=== PATIENT | male | born 1980 | race Caucasian/White ===

== ENCOUNTER 2019-05-02 03:17 | Emergency (ER) | payer MEDICAID, MEDICARE ==
[2019-05-02 04:05] LABS: ABSOLUTE BASOPHILS # (AUTO) 0.1 10^3/uL (0.0-0.2); ABSOLUTE EOSINOPHILS # (AUTO) 0.1 10^3/uL (0.0-0.6); ABSOLUTE LYMPHOCYTES (AUTO) 1.7 10^3/uL (0.5-4.7); ABSOLUTE MONOCYTES (AUTO) 0.6 10^3/uL (0.1-1.4); ABSOLUTE NEUT (AUTO) 5.6 10^3/uL (1.7-8.2); BASOPHILS % (AUTO) 0.8 % (0-2); EOSINOPHILS % (AUTO) 1.6 % (0-6); HEMATOCRIT 43.3 % (37.9-51.0); HEMOGLOBIN 14.9 g/dL (13.5-17.0); LYMPHOCYTES % (AUTO) 21.3 % (13-45); MEAN CORPUSCULAR HEMOGLOBIN 32.6 pg (27.0-33.4); MEAN CORPUSCULAR HGB CONC 34.5 g/dL (32.0-36.0); MEAN CORPUSCULAR VOLUME 94 fl (80-97); MONOCYTES % (AUTO) 7.9 % (3-13); PLATELET COUNT 295 10^3/uL (150-450); RED BLOOD COUNT 4.58 10^6/uL (4.35-5.55); RED CELL DISTRIBUTION WIDTH 13.8 % (11.5-14.0); SEGMENTED NEUTROPHILS % (AUTO) 68.4 % (42-78); TOTAL CELLS COUNTED % (AUTO) 100 %; WHITE BLOOD COUNT 8.2 10^3/uL (4.0-10.5)
[2019-05-02 04:38] LABS: ALBUMIN 4.4 g/dL (3.5-5.0); ALKALINE PHOSPHATASE 57 U/L (38-126); ANION GAP 8 (5-19); ASPARTATE AMINO TRANSFERASE 19 U/L (17-59); BILIRUBIN,DIRECT 0.1 mg/dL (0.0-0.4); BILIRUBIN,TOTAL 0.7 mg/dL (0.2-1.3); BLOOD UREA NITROGEN 12 mg/dL (7-20); CALCIUM 9.9 mg/dL (8.4-10.2); CARBON DIOXIDE 32 mmol/L (22-30); CHLORIDE 100 mmol/L (98-107); GLUCOSE 94 mg/dL (75-110); TOTAL PROTEIN 7.2 g/dL (6.3-8.2)
[2019-05-02 04:41] LABS: ACETAMINOPHEN < 10 ug/mL (10-30); ALCOHOL < 10 mg/dL (NONE DETECTED); SALICYLATE < 1.0 mg/dL (2.0-20.0)
[2019-05-02 04:59] LABS: APPEARANCE,URINE SLIGHTLY-CLOUDY; BILIRUBIN,URINE NEGATIVE (NEGATIVE); COLOR,URINE YELLOW; GLUCOSE, URINE NEGATIVE (NEGATIVE); KETONES,URINE TRACE mg/dL (NEGATIVE); LEUKOCYTE ESTERASE,URINE NEGATIVE (NEGATIVE); NITRITE,URINE NEGATIVE (NEGATIVE); PROTEIN,URINE 30 mg/dL (NEGATIVE); URINE SPECIFIC GRAVITY 1.019; UROBILINOGEN,URINE NEGATIVE mg/dL (<2.0)
[2019-05-02 05:07] LABS: URINE BARBITURATES SCREEN NEGATIVE; URINE BENZODIAZEPINES SCREEN NEGATIVE; URINE COCAINE SCREEN NEGATIVE; URINE METHADONE SCREEN NEGATIVE; URINE PHENCYCLIDINE SCREEN NEGATIVE
[2019-05-02 05:08] LABS: URINE AMPHETAMINES SCREEN UNCONFIRMED POSITIVE; URINE MARIJUANA (THC) SCREEN UNCONFIRMED POSITIVE
--- NOTE | 2019-05-02 06:44 | ER Document Report ---
ED General <OLIVER OVERTON - Last Filed: 05/02/19 09:19> - Related Data Home Medications: Depakote, cogentin, prolixin <LANE NAVA - Last Filed: 05/02/19 09:26> - General Chief Complaint: Psych Problem Stated Complaint: PSYCH Time Seen by Provider: 05/02/19 05:58 Primary Care Provider: [facility] [Outside] - Follow up as needed - HPI Notes: Patient is a 38-year-old male with a known history of schizophrenia who presents to the emergency department for evaluation. Evidently the patient presented to [place], as he wanted help with drug addiction. The patient admits to using crack cocaine, methamphetamines, pills, and "what ever else I can get." He states that he has been using excessively for the last month, since being discharged from [facility]. He had been arrested based on a drug violation. He states he had be en having suicidal and homicidal thoughts earlier, but states that right now he is not having any. His homicidal thoughts were not directed at anyone in particular, he states he was just angry. He states to me that he has been taking his medications, believes that they are helpful. He also states to me that he is having visual and auditory hallucinations. I asked him if he could not elaborate, and he states "they are too hard to explain." The patient has had multiple psychiatric hospitalizations in the past. He states that this point he just wants help with his substance abuse issues. (LANE NAVA) - Related Data Allergies/Adverse Reactions: No Known Allergies Allergy (Unverified 05/02/19 03:30) Past Medical History - General Information source: Patient - Social History Smoking Status: Current Every Day Smoker Family History: Reviewed & Not Pertinent Patient has suicidal ideation: Yes Patient has homicidal ideation: Yes Psychiatric Medical History: Reports: Hx Schizophrenia <LANE NAVA - Last Filed: 05/02/19 09:26> Review of Systems - Review of Systems Constitutional: No symptoms reported EENT: No symptoms reported Cardiovascular: No symptoms reported Respiratory: No symptoms reported Gastrointestinal: No symptoms reported Genitourinary: No symptoms reported Musculoskeletal: No symptoms reported Skin: No symptoms reported Neurological/Psychological: No symptoms reported <LANE NAVA - Last Filed: 05/02/19 09:26> Physical Exam <LANE NAVA - Last Filed: 05/02/19 09:26> - Vital signs Vitals: Temp Pulse Resp BP Pulse Ox 97.4 F 81 20 145/66 H 100 05/02/19 03:25 05/02/19 03:25 05/02/19 03:25 05/02/19 03:25 05/02/19 03:25 - Notes Notes: This is a pleasant 38-year-old male who appears his stated age in no acute distr ess. He is lying comfortably in the bed, interacts appropriately with examiner. He is calm and cooperative. Vital signs reviewed, please refer to chart. Head is normocephalic, atraumatic. Pupils equal round, reactive to light. Neck is supple without meningismus. Heart is regular rate and rhythm. Lungs are clear to auscultation bilaterally. Abdomen is soft, nontender, normoactive bowel soun ds throughout. Extremities without cyanosis, clubbing. Posterior calves are nontender. Peripheral pulses are equal. Skin is warm and dry. Patient is awake, alert, neurological exam is nonfocal. (LANE NAVA) Course - Laboratory Result Diagrams: 05/02/19 03:40 05/02/19 03:40 <OLIVER OVERTON - Last Filed: 05/02/19 09:19> - Laboratory Result Diagrams: 05/02/19 03:40 05/02/19 03:40 <L[address] NAVA - Last Filed: 05/02/19 09:26> - Re-evaluation Re-evalutation: 05/02/19 06:44 Patient presents to the emergency department for evaluation. He denies any current suicidal or homicidal ideations. He does admit to some visual and auditory hallucinations. He certainly has some substance abuse issues that will need to be addressed as well. Otherwise, he has no somatic complaints at this time. He is calm and cooperative. He is medically cleared, awaiting psychosoci al evaluation. (LANE NAVA) - Vital Signs Vital signs: Temp Pulse Resp BP Pulse Ox 97.4 F 81 20 145/66 H 100 05/02/19 03:25 05/02/19 03:25 05/02/19 03:25 05/02/19 03:25 05/02/19 03:25 - Laboratory Laboratory results interpreted by me: 05/02/19 05/02/19 03:40 04:00 Carbon Dioxide 32 H Urine Protein 30 H Urine Ketones TRACE H Salicylates < 1.0 L Acetaminophen < 10 L - EKG Interpretation by Me Additional EKG results interpreted by me: 05/02/19 06:43 Sinus mechanism with rate of 69 bpm. Normal axis and intervals, no acute ST changes concerning for ischemia or infarction. (LANE NAVA) Discharge <OLIVER OVERTON - Last Filed: 05/02/19 09:19> <LANE NAVA - Last Filed: 05/02/19 09:26> - Discharge Clinical Impression: Polysubstance abuse, Schizophrenia Condition: Stable Disposition: HOME, SELF-CARE Additional Instructions: You have been evaluated both medical and behavioral health teams and been deemed appropriate for discharge. You are highly encouraged to abstain from using illegal substances. The use of these substances can increase mental health crisis in addition to inducing psychosis which can include hallucinations and delusions. You are encouraged to take your mental health medications as directed from [facility]. Please follow-up with them in 3 to 5 days for your continued outpatient mental health services. You are also encouraged to talk to them about adding substance use treatment. AMPHETAMINE / METHAMPHETAMINE ABUSE: Amphetamines are addicting stimulants. Amphetamines overstimulate the nervous system and give a false feeling of power and mastery. These drugs may be obtained as prescription pills for weight loss, narcolepsy, or attention-deficit disorder. More often they're bought as an illegal street drug, methamphetamine (crank, crystal, speed). Using amphetamines repeatedly can lead to serious medical problems including malnutrition, severe depression, and paranoia. It can take increasing amounts to feel good. Eventually, there will be a "burn out." When you go off amphetamines there is a period of depression that may last for weeks or even months. High doses of amphetamines can cause seizures, confusion, hallucinations, delusions, high blood pressure, muscle damage, heart damage, or sudden . Many times these deadly complications occur even with "normal" doses. Injection of amphetamines is risky for developing abscesses, endocarditis (heart infection), pneumonia, and AIDS. Withdrawal from amphetamines often causes anxiety, depression, and drug cravings. Some users become paranoid and psychotic. There may be cramps, nausea, and vomiting. Many treatment programs are available, but you must make the decision to quit. Medication can be prescribed to control the symptoms of amphetamine toxicity (beta blockers or benzodiazepines). Withdrawal symptoms may require tranquilizers. FOLLOW-UP CARE: If you have been referred to a physician for follow-up care, call the physicians office for an appointment as you were instructed or within the next two days. If you experience worsening or a significant change in your symptoms, notify the physician immediately or return to the Emergency Department at any time for re-evaluation. Referrals: [facility] [Outside] - Follow up as needed
--- NOTE | 2019-05-02 09:19 | PSYCHOLOGICAL NOTE ---
Psych Note - Psych Note Date seen by psych provider: 05/02/19 Time seen by psych provider: 07:45 Psych Note: Reason For Consult:Detox Consent Permissions:Father at bedside after evaluation Patient is a 38-year-old male with a known history of schizophrenia who presents to the emergency department for evaluation. Evidently the patient presented to [place], as he wanted help with drug addiction. The patient admits to using crack cocaine, methamphetamines, pills, and "what ever else I can get." He states that he has been using excessively for the last month, [facility] Patient reports he did not like being at [facility] which is why he left and then came to [facility]. He reports that he used meth and was having a hard time controlling his anxiety. He states he is unsure if he is homeless that he will be discussing that with his father when his father returns to the room. He declines assistance in returning to [facility]. Patient reports that he wants to "do it on his own." Clinician provided psychoeducation on the impor tance of support network and treatment to be successful in obtaining and maintaining sobriety. He denies any other concerns at this time. Patient's father denies any concerns at this time for the patient. Patient is alert and orientated to person, place, time and circumstance. Mood is overall euthymic with congruent affect. Patient denies suicidal and homicidal ideation. Delusions are absent and behaviors congruent with an intact reality based presentation ie organized and linear thought process. Eye contact is well-maintained. Conversational speech is within normal rate, tone and pros jasvir. Intellectual abilities appear to be within the average range. Attention and concentration are good. Insight, judgment, impulse control are fair. Chart review: This is the first charted visit for this patient. Patient is prescribed Depakote 500 mg twice daily Cogentin 1 mg twice daily and Prolixin 2 mg daily last prescribed 04/07/2019 by Nimesh Crocker NP of [facility] in [place]. Impression\\plan: Patient is cleared from acute psychiatric services. Patient denies any thoughts of wanting to harm himself or others. Patient does disclose he had previous thoughts but denies plans means and intent of harming anyone or himself identifying that he was just "angry." Patient states that he wants sobriety however feels that he can do this on his own. He confirms he was high on meth when trying to check into the [facility] crisis [facility]. He declines assistance in returning to [facility] crisis [facility]; however, he is willing to take resource information if he changes his mind. Clinician notes patient reports hallucinations to attending physician. Patient's behavior does not support that he is responding to any internal stimuli at this time. Patient's reported aud itory and visual hallucinations at this time appear to be directly connected to his substance use. This is supported by the patient experiencing and demonstrating responding to internal stimuli while under the influence of Meth, but now that he is sober, he is no longer experiencing difficulties with hallucinations. Dr. Moore was consulted to care management of this patient; attending physicians in agreement with recommendations and disposition.
[2019-05-02 10:00] VITALS: BP 141/72
--- NOTE | 2019-05-02 17:34 | EKG REPORT ---
SEVERITY:- NORMAL ECG - SINUS RHYTHM : Confirmed by: Mayelin Johnson 02-May-2019 17:33:28
== END 2019-05-02 10:00 | disposition home or self-care (01) ==
LOC: ER 03:17
DX: F19.10 Other psychoactive substance abuse, uncomplicated (principal); F20.9 Schizophrenia, unspecified; F17.200 Nicotine dependence, unspecified, uncomplicated
CPT/HCPCS: 36415; 80053; 80307; 81001; 85025; 93005; 93010; 99285